=== PATIENT | female | born 1955 | race Caucasian/White ===

== ENCOUNTER 2018-10-10 08:17 | Day surgery (SDC) | payer BC ==
[~2018-10-10 08:17] MED LIST: ACETAMINOPHEN 1,000 MG/100 ML BTL IV ONE; CLINDAMYCIN 600MG/50ML PREMIX 600 MG/50 ML BAG IVPB ONE
[2018-10-10] MEDS ORDERED: MIDAZOLAM HCL 2MG/2ML VIAL IV ONE (08:18)
[2018-10-10] MEDS ORDERED: DIPHENHYDRAMINE HCL 50 MG/ML VIAL IVP ONE (08:18)
[2018-10-10] MEDS ORDERED: HYDROCODONE/APAP 5/325MG TABLET PO ONE (08:18)
[2018-10-10] MEDS ORDERED: BUPIVACAINE 0.25% W/EPI MPF 30ML VIAL IVP ONE (08:18)
[2018-10-10] MEDS ORDERED: DEXAMETHASONE 4 MG/ML 1ML VIAL IVP ONE ×2 (08:18)
[2018-10-10] MEDS ORDERED: ONDANSETRON HCL IV 4 MG/2 ML VIAL IVP ONE (08:18)
[2018-10-10] MEDS ORDERED: ROPIVACAINE HCL (NAROPIN) /PF 5MG/ML 20ML VIAL IV ONE ×2 (08:18)
[2018-10-10] MEDS ORDERED: PROPOFOL 10 MG/ML VIAL IV ONE (08:18)
[2018-10-10] MEDS ORDERED: FENTANYL PF 100MCG/2ML VIAL IV ONE (08:18)
[2018-10-10] MEDS ORDERED: LIDOCAINE 2% MDV (20MG/ML) 20ML VIAL IV ONE (08:18)
[2018-10-10] MEDS ORDERED: SEVOFLURANE 250 ML INH ONE (08:18)
--- NOTE | 2018-10-11 09:40 | Operative Note ---
DATE OF SURGERY: 10/10/2018 Surgeon: Gregory Ellsworth DO PREOPERATIVE DIAGNOSIS: Reducible right inguinal hernia. POSTOPERATIVE DIAGNOSIS: Direct. OPERATION: Open right inguinal herniorrhaphy with mesh. Indication: The patient is a 62-year-old female who presented to the office with pain and bulging in his right inguinal region. We did discuss repair. Risks, benefits, and alternatives were discussed. Risks include bleeding, infection, acute or chronic pain, recurrence. She understood this fully. Thereafter, consent was signed and questions answered. PROCEDURE: She was taken to the operating room and placed in a supine position. General anesthesia was administered per the department of anesthesia. The patient's right inguinal region was shaved of hair and prepped and draped in a sterile fashion. She had undergone a preoperative block per the department of anesthesia. At this time, the oblique region was anesthetized with a total of 5 mL of 0.25% Sensorcaine with epinephrine. An oblique incision was made. This was carried down through subcutaneous tissues through Kyler layer to the aponeurosis of the external oblique. This was skeletonized. A angelica was made with a scalpel blade and enlarged through the superficial inguinal ring with Metzenbaum scissors. Care was taken not to injure the underlying round ligament or ilioinguinal nerve. Superior and inferior flaps were developed and a Iman was placed on the round ligament. This was dissected free from the floor. She was noted to have a direct hernia. Jahaira clamps placed on the round ligament, and this was transected and passed off the field. The round ligament was then tied off with 0 Vicryl. At the time, the floor was then imbricated in a Pessini-type fashion with 0 Vicryl. A 10 x 15 cm ProGrip mesh was obtained. This was customized to size. This was placed covering the entire floor. Sutures went at the level of pubic tubercle, the second portion of the inguinal ligament, and the internal oblique aponeurosis. The lateral triangle was protected with the lateral aspect of the mesh. At this time, the aponeurosis was closed over the mesh with 2-0 Vicryl, the Kyler layer was closed with 3-0 Vicryl, and skin was closed with 4-0 Vicryl. She tolerated the procedure well. CC: Harriett BURNS
== END 2018-10-10 12:15 | disposition home or self-care (01) ==
LOC: SUR 08:17
PROVIDERS: ATTEND Surgery
DX: K40.90 Unilateral inguinal hernia, without obstruction or gangrene, not specified as recurrent (principal); G47.33 Obstructive sleep apnea (adult) (pediatric); F17.210 Nicotine dependence, cigarettes, uncomplicated
CPT/HCPCS: 76942; J1200; J2405